=== PATIENT | female | born 1985 | race Asian ===

== ENCOUNTER 2018-01-06 13:47 | Inpatient (IN) | payer OTHER ==
[~2018-01-06] VITALS: Ht 157.5 cm; Wt 54.0 kg
--- NOTE | 2018-01-06 14:24 | Emergency Room Report ---
History of Present Illness General Chief Complaint: Abdominal Pain Source: Patient Present Illness HPI 32-year-old female with no medical problems, no surgical history, no meds, presents with 1 week history of abdominal pain, reports he was epigastric and periumbilical sharp pain intermittently for the past 6 days, however last night it migrated to the right lower quadrant, she also reports a subjective fever last night. She reports the pain is intermittent, sharp, non-radiating, localized to the right lower quadrant now. She denies sore throat, cough, vomiting, diarrhea, vaginal discharge, dysuria, hematuria, any other complaints. She was sent here by her primary care doctor for an evaluation for appendicitis. Allergies: Coded Allergies: No Known Allergies (Unverified , 01/06/18) Patient History Past Medical History: see triage record Last Menstrual Period: 12/08/17 Now: No : 0 Reviewed Nursing Documentation: PMH: Agreed; PSxH: Agreed Nursing Documentation-PMH Past Medical History: No History, Except For Review of Systems All Other Systems: negative except mentioned in HPI Physical Exam Vital Signs Date Time Temp Pulse Resp B/P (MAP) Pulse Ox O2 Delivery O2 Flow Rate FiO2 01/06/18 14:14 99.7 105 18 118/84 100 Room Air 99.7 Sp02 EP Interpretation: reviewed, normal General Appearance: alert, mild distress Head: normocephalic Eyes: bilateral eye normal inspection, bilateral eye PERRL, bilateral eye EOMI ENT: normal ENT inspection, hearing grossly normal, normal pharynx, no angioedema, normal voice, moist mucus membranes Neck: normal inspection, full range of motion, supple, supple/symm/no masses Respiratory: chest non-tender, lungs clear, normal breath sounds, chest symmetrical, palpation of chest normal Cardiovascular #1: normal peripheral pulses, regular rate, rhythm Cardiovascular #2: 2+ radial (R), 2+ radial (L), 2+ dorsalis pedis (R), 2+ dorsalis pedis (L) Gastrointestinal: normal inspection, soft, no mass, no guarding, no rebound, tenderness - +Mc [place]'s point RLQ tenderness Rectal: deferred Genitourinary: normal inspection, no CVA tenderness Musculoskeletal: back normal, gait/station normal, normal range of motion, non- tender, no calf tenderness Neurologic: alert, responsive, produce inspector III-XII nml as tested, motor strength/tone normal, sensory intact, speech normal Psychiatric: judgement/insight normal, memory normal, mood/affect normal Skin: normal color, no rash, warm/dry, normal turgor Lymphatic: no adenopathy Procedures Critical Care Time Critical Care Time 30 minutes excluding all procedures for need for emergent surgical evaluation Medical Decision Making Diagnostic Impression: Primary Impression: Appendicitis, acute ER Course Patient made nothing by mouth, high suspicion for appendicitis, no evidence of peritoneal signs on initial exam, will obtain labs and CT scan and monitor closely for signs of decompensation. Patient with WBC 22k, started on IV abx. CT/MRI/US Diagnostic Results CT/MRI/US Diagnostic Results : Imaging Test Ordered: ct abd/pelvis Impression 10mm appendicitis with surrounding stranding, no free air, slight amount of ff in pelvis possibly 2/2 ovarian cysts Reevaluation Time: 16:37 Last Vital Signs Date Time Temp Pulse Resp B/P (MAP) Pulse Ox O2 Delivery O2 Flow Rate FiO2 01/06/18 14:14 99.7 105 18 118/84 100 Room Air 99.7 Status: unchanged Reevaluation Impression On reevaluation, still with no peritoneal signs, and CT scan does reveal evidence of acute appendicitis with surrounding inflammatory changes, but no perforation seen on scan. Patient given IV antibiotics, remains nothing by mouth, IV fluids ordered, IV analgesics, Dr. Hare informed and agrees to consult for acute appendicitis and take to OR first thing in the morning unless condition changes. Dr. Scanlon agrees to admit. Disposition: ADMITTED INPATIENT Condition: Stable Signed Out To: Dr. Scanlon Physician Consult: BECKA Walker M.D Jan 06, 2018 14:24
[2018-01-06 14:30] VITALS: BP 118/84
[2018-01-06 15:23] LABS: HEMATOCRIT 39.8 % (37.0-47.0); HEMOGLOBIN 14.8 G/DL (12.0-16.0); MEAN CORPUSCULAR VOLUME 94 FL (80-99); PLATELET COUNT 262 K/UL (150-450); RED BLOOD COUNT 4.25 M/UL (4.20-5.40); RED CELL DISTRIBUTION WIDTH 10.3 % (11.6-14.8)
[2018-01-06 15:25] LABS: WHITE BLOOD COUNT 22.1 K/UL (4.8-10.8)
[2018-01-06 15:28] LABS: APPEARANCE,URINE SLIGHTLY CLOUDY; BILIRUBIN, URINE 1+ (NEGATIVE); GLUCOSE, URINE (UA) NEGATIVE (NEGATIVE); KETONES,URINE 4+ (NEGATIVE); LEUKOCYTE ESTERASE ,URINE 1+ (NEGATIVE); NITRITE,URINE NEGATIVE (NEGATIVE); PH,URINE 6 (4.5-8.0); PROTEIN,URINE 2+ (NEGATIVE); UROBILINOGEN,URINE 4 MG/DL (0.0-1.0)
[2018-01-06 15:29] LABS: COLOR,URINE AMBER
[2018-01-06 15:40] LABS: ANION GAP 12 mmol/L (5-15); BLOOD UREA NITROGEN 6 mg/dL (7-18); CALCIUM 9.1 MG/DL (8.5-10.1); CARBON DIOXIDE 23 MMOL/L (21-32); CHLORIDE 100 MMOL/L (98-107); CREATININE 0.6 MG/DL (0.55-1.30); POTASSIUM 3.8 MMOL/L (3.5-5.1); SODIUM 135 MMOL/L (136-145)
[2018-01-06 15:44] LABS: ALANINE AMINOTRANSFERASE 21 U/L (12-78); ALBUMIN 3.6 G/DL (3.4-5.0); ALBUMIN/GLOBULIN RATIO 0.9 (1.0-2.7); ALKALINE PHOSPHATASE 66 U/L (46-116); ASPARTATE AMINO TRANSFERASE 19 U/L (15-37); BILIRUBIN,TOTAL 0.9 MG/DL (0.2-1.0)
[2018-01-06] MEDS ORDERED: cefOXitin 1gm Inj ONE (16:32)
[2018-01-06] MEDS ORDERED: cefOXitin 2gm Inj ONE (16:34)
[2018-01-06] MEDS ORDERED: Morphine Sulfate 4mg/ml Inj (IV USE ONLY) IVP ONE (16:45)
[2018-01-06 17:03] VITALS: BP 124/72
[2018-01-06] MEDS ORDERED: cefOXitin 2gm Inj IVP ONE (18:00)
[2018-01-06 18:15] VITALS: BP 100/66
--- NOTE | 2018-01-06 18:53 | Consultation ---
History of Present Illness General Date patient seen: Jan 06, 2018 Chief Complaint: Abdominal Pain Reason for Consultation: acute appy Present Illness HPI 32 year old otherwise healthy female presented to ED with complaints of abdominal pain. states last week noted some vague abdominal discomfort. two days ago acutely worsened. aisha-umbilical now in RLQ. no radiation. no n/v. +fevers. normal BM and flatus. in ED leukocytosis and CT consistent with acute appy Allergies: Coded Allergies: No Known Allergies (Unverified , 01/06/18) Patient History History Provided By: Patient, Medical Record, PMD Healthcare decision maker Resuscitation status Advanced Directive on File Past Medical/Surgical History Past Medical/Surgical History: (1) Appendicitis, acute Review of Systems All Other Systems: negative except mentioned in HPI Physical Exam General Appearance: no apparent distress Lines, tubes and drains: peripheral HEENT: normocephalic, mucous membranes moist Neck: normal inspection Respiratory/Chest: lungs clear, normal breath sounds, no respiratory distress, no accessory muscle use Cardiovascular/Chest: normal peripheral pulses, normal rate Abdomen: normal bowel sounds, soft, no organomegaly, no mass, guarding, rebound , tender Extremities: normal inspection Skin Exam: normal pigmentation Neurologic: older worker specialist II-XII grossly normal, alert, oriented x 3 Last 24 Hour Vital Signs Date Time Temp Pulse Resp B/P (MAP) Pulse Ox O2 Delivery O2 Flow Rate FiO2 01/06/18 18:15 100.2 88 18 100/66 (77) 100 100.2 01/06/18 18:13 97.6 98 16 124/72 100 Room Air 97.6 01/06/18 17:31 97.6 01/06/18 17:03 97.6 98 16 124/72 100 Room Air 97.6 01/06/18 17:01 99.7 01/06/18 14:30 99.7 105 18 118/84 100 Room Air 99.7 01/06/18 14:14 99.7 105 18 118/84 100 Room Air 99.7 Laboratory Tests Test 01/06/18 14:45 White Blood Count 22.1 K/UL (4.8-10.8) *H Red Blood Count 4.25 M/UL (4.20-5.40) Hemoglobin 14.8 G/DL (12.0-16.0) Hematocrit 39.8 % (37.0-47.0) Mean Corpuscular Volume 94 FL (80-99) Mean Corpuscular Hemoglobin 34.8 PG (27.0-31.0) H Mean Corpuscular Hemoglobin Concent 37.1 G/DL (32.0-36.0) H Red Cell Distribution Width 10.3 % (11.6-14.8) L Platelet Count 262 K/UL (150-450) Mean Platelet Volume 6.4 FL (6.5-10.1) L Neutrophils (%) (Auto) % (45.0-75.0) Lymphocytes (%) (Auto) % (20.0-45.0) Monocytes (%) (Auto) % (1.0-10.0) Eosinophils (%) (Auto) % (0.0-3.0) Basophils (%) (Auto) % (0.0-2.0) Differential Total Cells Counted 100 Neutrophils % (Manual) 87 % (45-75) H Lymphocytes % (Manual) 5 % (20-45) L Monocytes % (Manual) 8 % (1-10) Eosinophils % (Manual) 0 % (0-3) Basophils % (Manual) 0 % (0-2) Band Neutrophils 0 % (0-8) Platelet Estimate Adequate Platelet Morphology Normal Red Blood Cell Morphology Normal Urine Color [place] Urine Appearance Slightly cloudy Urine pH 6 (4.5-8.0) Urine Specific [place] 1.020 (1.005-1.035) Urine Protein 2+ (NEGATIVE) H Urine Glucose (UA) Negative (NEGATIVE) Urine Ketones 4+ (NEGATIVE) H Urine Blood 2+ (NEGATIVE) H Urine Nitrite Negative (NEGATIVE) Urine Bilirubin 1+ (NEGATIVE) H Urine Ictotest Positive (NEGATIVE) Urine Urobilinogen 4 MG/DL (0.0-1.0) H Urine Leukocyte Esterase 1+ (NEGATIVE) H Urine RBC 2-4 /HPF (0 - 2) H Urine WBC 10-15 /HPF (0 - 2) H Urine Squamous Epithelial Cells Few /LPF (NONE/OCC) Urine Bacteria Few /HPF (NONE) Urine Mucus Many /LPF (NONE/OCC) H Urine HCG, Qualitative Negative (NEGATIVE) Sodium Level 135 MMOL/L (136-145) L Potassium Level 3.8 MMOL/L (3.5-5.1) Chloride Level 100 MMOL/L (98-107) Carbon Dioxide Level 23 MMOL/L (21-32) Anion Gap 12 mmol/L (5-15) Blood Urea Nitrogen 6 mg/dL (7-18) L Creatinine 0.6 MG/DL (0.55-1.30) Estimat Glomerular Filtration Rate > 60 mL/min (>60) Glucose Level 106 MG/DL (74-106) Calcium Level 9.1 MG/DL (8.5-10.1) Total Bilirubin 0.9 MG/DL (0.2-1.0) Aspartate Amino Transf (AST/SGOT) 19 U/L (15-37) Alanine Aminotransferase (ALT/SGPT) 21 U/L (12-78) Alkaline Phosphatase 66 U/L (46-116) Total Protein 7.7 G/DL (6.4-8.2) Albumin 3.6 G/DL (3.4-5.0) Globulin 4.1 g/dL Albumin/Globulin Ratio 0.9 (1.0-2.7) L Lipase 90 U/L (73-393) Height (Feet): 5 Height (Inches): 2.00 Weight (Pounds): 119 Assessment/Plan Problem List: (1) Appendicitis, acute Assessment & Plan: 32F acute appendicitis. low grade fevers leukocytosis +mcburneys on exam npo iv fluids iv abx am labs consent OR for lap appy ICD Codes: K35.80 - Unspecified acute appendicitis SNOMED: 02000811 Qualifiers: Qualified Codes: K35.3 - Acute appendicitis with localized peritonitis Status: stable Perez Boateng Jan 06, 2018 18:53
[2018-01-06 20:00] VITALS: BP 98/64
[2018-01-06] MEDS: D5NS 1,000 ML IV SCH (20:19)
[2018-01-06 21:30] VITALS: BP 102/62
[2018-01-06] MEDS: Morphine Sulfate 2mg/ml Inj(IV/IM USE ONLY) IVP PRN (21:40)
[2018-01-06] MEDS: Piperacillin/Tazobactam 3.375 GM in NS 110 ML IVPB SCH (21:40)
--- NOTE | 2018-01-06 23:00 | History and Physical Report ---
DATE OF ADMISSION: 01/06/2018 CHIEF COMPLAINT: Acute appendicitis. HISTORY OF PRESENT ILLNESS: The patient is a 32-year-old female with no past medical history. She presented to the emergency room with complaints of 6 days of progressive abdominal pain. According to the patient, the pain started in the epigastric region, but localized right lower quadrant. She has had poor appetite and anorexia. She presented to the emergency room. She had white count of 22,000. CT scan of the abdomen was consistent with acute appendicitis. The patient is now admitted for further evaluation and care. PAST MEDICAL HISTORY: None. PAST SURGICAL HISTORY: None. CURRENT MEDICATIONS: None. FAMILY HISTORY: None. SOCIAL HISTORY: The patient drinks socially and smokes and no drugs. REVIEW OF SYSTEMS: Negative except for abdominal pain. PHYSICAL EXAMINATION: VITAL SIGNS: Temperature 100.2 degrees, pulse 88, respirations 18, and blood pressure 100/66. GENERAL: The patient is well developed, in no apparent distress. HEART: Regular rate and rhythm. LUNGS: Clear. ABDOMEN: Soft, diffusely tender with no rebound or guarding. EXTREMITIES: No clubbing, cyanosis, or edema. LABORATORY AND DIAGNOSTIC DATA: White count 22,000, hemoglobin 14, and platelet count of 262. Sodium was 135 and potassium 3.8. Urine showed 10 to 15 wbc's. ASSESSMENT: This is a pleasant female admitted with complaints of acute appendicitis. PROBLEM LIST: Acute appendicitis. PLAN: IV antibiotics, IV hydration, NPO, pain medications and antiemetics. Surgery in the morning. Dileep Scanlon M.D. DR: CHAS JOB#: [id number] CC:
[2018-01-07] VITALS (10 sets, daily range): BP systolic 97–107; BP diastolic 63–93
[2018-01-07] MEDS: Morphine Sulfate 2mg/ml Inj(IV/IM USE ONLY) IVP PRN (03:03)
[2018-01-07] MEDS: D5NS 1,000 ML IV SCH ×2 (05:21→14:52)
[2018-01-07] MEDS: Piperacillin/Tazobactam 3.375 GM in NS 110 ML IVPB SCH ×2 (05:21→14:34)
[2018-01-07] MEDS ORDERED: Midazolam 2mg/2ml Inj ONE (07:07)
[2018-01-07] MEDS ORDERED: fentaNYL 100 mcg/2 mL IV ONE (07:07)
[2018-01-07] MEDS ORDERED: Propofol 200mg/20ml IV ONE (07:09)
[2018-01-07] MEDS ORDERED: Lidocaine 1% MPF 10mg/ml 5ml ONE (07:09)
[2018-01-07] MEDS ORDERED: Ketorolac 30mg Inj ONE (07:09)
--- NOTE | 2018-01-07 07:13 | Pre-Procedure Note/Attestation ---
Pre-Procedure Note/Attestation Complete Prior to Procedure Planned Procedure: not applicable Procedure Narrative: lap appy Indications for Procedure Pre-Operative Diagnosis: acute appendicitis Attestation I attest that I discussed the nature of the procedure; its benefits; risks and complications; and alternatives (and the risks and benefits of such alternatives ), prior to the procedure, with the patient (or the patient's legal employee relations representative). I attest that, if there was a reasonable possibility of needing a blood transfusion, the patient (or the patient's legal employee relations representative) was given the [facility] standardized written summary, pursuant to the David Ministerio Blood Safety Act ([place] Health and Safety Code # 1645, as amended). I attest that I re-evaluated the patient just prior to the surgery and that there has been no change in the patient's H&P, except as documented below: Perez Boateng Jan 07, 2018 07:13
[2018-01-07] MEDS ORDERED: Zemuron 50mg/5ml Inj IV ONE (07:15)
[2018-01-07] MEDS ORDERED: Succinylcholine 20mg/ml 10ml vial ONE (07:15)
[2018-01-07] MEDS ORDERED: EPINEPHrine 1mg/1ml Amp ONE (07:21)
[2018-01-07] MEDS ORDERED: Bupivacaine 0.5% Inj 30 ml vial INJ ONE (07:21)
[2018-01-07] MEDS ORDERED: LR 1000ml ONE (07:30)
[2018-01-07] MEDS ORDERED: Neostigmine 1mg/ml 10ml Inj ONE (07:30)
[2018-01-07] MEDS ORDERED: Sterile Water Irrig 1000ml IRRIG ONE (07:30)
--- NOTE | 2018-01-07 07:56 | General Progress Note ---
Assessment/Plan Problem List: (1) Appendicitis, acute ICD Codes: K35.80 - Unspecified acute appendicitis SNOMED: [id number] Qualifiers: Qualified Codes: K35.3 - Acute appendicitis with localized peritonitis Status: stable Assessment/Plan stable for surgery ivf abx npo appy today Subjective ROS Limited/Unobtainable: No HEENT: Reports: no symptoms Cardiovascular: Reports: no symptoms Respiratory: Reports: no symptoms Gastrointestinal/Abdominal: Reports: abdominal pain Genitourinary: Reports: no symptoms Neurologic/Psychiatric: Reports: no symptoms Endocrine: Reports: no symptoms Hematologic/Lymphatic: Reports: no symptoms Allergies: Coded Allergies: No Known Allergies (Unverified , 01/06/18) All Systems: reviewed and negative except above Subjective npo for surgery this am. same abd pain. low grade fever Objective Last 24 Hour Vital Signs Date Time Temp Pulse Resp B/P (MAP) Pulse Ox O2 Delivery O2 Flow Rate FiO2 01/07/18 04:00 99.4 81 18 97/63 (74) 97 99.4 01/07/18 00:00 100.1 87 19 101/65 (77) 97 100.1 01/06/18 21:30 102/62 (75) 01/06/18 20:00 100.0 85 18 98/64 (75) 95 100.0 01/06/18 19:45 Room Air 01/06/18 18:15 100.2 88 18 100/66 (77) 100 100.2 01/06/18 18:13 97.6 98 16 124/72 100 Room Air 97.6 01/06/18 17:31 97.6 01/06/18 17:03 97.6 98 16 124/72 100 Room Air 97.6 01/06/18 17:01 99.7 01/06/18 14:30 99.7 105 18 118/84 100 Room Air 99.7 01/06/18 14:14 99.7 105 18 118/84 100 Room Air 99.7 Intake and Output 01/06/18 01/07/18 19:00 07:00 Intake Total 2067.5 ml Balance 2067.5 ml Intake IV Total 2067.5 ml # Voids 1 1 Laboratory Tests 01/06/18 14:45: White Blood Count 22.1*H, Red Blood Count 4.25, Hemoglobin 14.8, Hematocrit 39.8 , Mean Corpuscular Volume 94, Mean Corpuscular Hemoglobin 34.8H, Mean Corpuscular Hemoglobin Concent 37.1H, Red Cell Distribution Width 10.3L, Platelet Count 262, Mean Platelet Volume 6.4L, Neutrophils (%) (Auto) , Lymphocytes (%) (Auto) , Monocytes (%) (Auto) , Eosinophils (%) (Auto) , Basophils (%) (Auto) , Differential Total Cells Counted 100, Neutrophils % ( Manual) 87H, Lymphocytes % (Manual) 5L, Monocytes % (Manual) 8, Eosinophils % ( Manual) 0, Basophils % (Manual) 0, Band Neutrophils 0, Platelet Estimate Adequate, Platelet Morphology Normal, Red Blood Cell Morphology Normal, Urine Color Audrey, Urine Appearance Slightly cloudy, Urine pH 6, Urine Specific [place] 1.020, Urine Protein 2+H, Urine Glucose (UA) Negative, Urine Ketones 4+H , Urine Blood 2+H, Urine Nitrite Negative, Urine Bilirubin 1+H, Urine Ictotest Positive, Urine Urobilinogen 4H, Urine Leukocyte Esterase 1+H, Urine RBC 2-4H, Urine WBC 10-15H, Urine Squamous Epithelial Cells Few, Urine Bacteria Few, Urine Mucus ManyH, Urine HCG, Qualitative Negative, Sodium Level 135L, Potassium Level 3.8, Chloride Level 100, Carbon Dioxide Level 23, Anion Gap 12, Blood Urea Nitrogen 6L, Creatinine 0.6, Estimat Glomerular Filtration Rate > 60 , Glucose Level 106, Calcium Level 9.1, Total Bilirubin 0.9, Aspartate Amino Transf (AST/SGOT) 19, Alanine Aminotransferase (ALT/SGPT) 21, Alkaline Phosphatase 66, Total Protein 7.7, Albumin 3.6, Globulin 4.1, Albumin/Globulin Ratio 0.9L, Lipase 90 Height (Feet): 5 Height (Inches): 2.00 Weight (Pounds): 119 General Appearance: WD/WN Neck: supple Cardiovascular: regular rhythm Respiratory/Chest: lungs clear Abdomen: normal bowel sounds, non tender, soft, no organomegaly Edema: no edema noted Arm (L), no edema noted Arm (R), no edema noted Leg (L), no edema noted Leg (R), no edema noted Pedal (L), no edema noted Pedal (R), no edema noted Generalized Neurologic: pulp tester II-XII grossly normal Dileep Scanlon MD Jan 07, 2018 07:56
[2018-01-07] MEDS ORDERED: Glycopyrrolate 0.2mg/ml 1ml Vial ONE (08:09)
[2018-01-07] MEDS ORDERED: LR 1000ml 1,000 ML IVLG SCH (08:22)
--- NOTE | 2018-01-07 08:22 | Anethesia Preoperative Eval ---
Anesthesia Pre-op PMH/ROS General Date of Evaluation: Jan 07, 2018 Time of Evaluation: 07:15 Anesthesiologist: Celestina ASA Score: ASA 2 Mallampati Score Class I : Soft palate, uvula, fauces, pillars visible Class II: Soft palate, uvula, fauces visible Class III: Soft palate, base of uvula visible Class IV: Only hard plate visible Mallampati Classification: Class II Surgeon: Ananya Diagnosis: Acute appendicitis Surgical Procedure: Lap appendectomy Anesthesia History: none Family History: no anesthesia problems Allergies: Coded Allergies: No Known Allergies (Unverified , 01/06/18) Past Medical History Cardiovascular: Denies: HTN, CAD, ME, valve dz, arrhythmia, other Pulmonary: Denies: asthma, COPD, VAMSI, other Gastrointestinal/Genitourinary: Reports: GERD - mild; Denies: CRI, ESRD, other Neurologic/Psychiatric: Denies: dementia, CVA, depression/anxiety, TIA, other Endocrine: Denies: DM, hypothyroidism, steroids, other HEENT: Denies: cataract (L), cataract (R), glaucoma, NIKOLAI (L), NIKOLAI (R), other Hematology/Immune: Denies: anemia, DVT, bleeding disorder, other Musculoskeletal/Integumentary: Denies: OA, RA, DJD, DDD, edema, other PMH Narrative: as above admitted for acute abdominal pain fewer N/V diagnosed with acute appy. surgery scheduled. PSxH Narrative: none Anesthesia Pre-op Phys. Exam Physician Exam Last Vital Signs Date Time Temp Pulse Resp B/P (MAP) Pulse Ox O2 Delivery O2 Flow Rate FiO2 01/07/18 04:00 99.4 81 18 97/63 (74) 97 99.4 01/06/18 19:45 Room Air Constitutional: NAD Neurologic: CN 2-12 intact Cardiovascular: RRR, no M/R/G Respiratory: CTA Gastrointestinal: other - some tenderness on palpation Airway Exam Mallampati Score: Class II MO: limited Neck: mild micrognatia ROM: full Teeth: intact Dentures: no upper, no lower Anesthesia Pre-op A/P Labs Hematology Test 01/06/18 14:45 White Blood Count 22.1 K/UL (4.8-10.8) *H Red Blood Count 4.25 M/UL (4.20-5.40) Hemoglobin 14.8 G/DL (12.0-16.0) Hematocrit 39.8 % (37.0-47.0) Mean Corpuscular Volume 94 FL (80-99) Mean Corpuscular Hemoglobin 34.8 PG (27.0-31.0) H Mean Corpuscular Hemoglobin Concent 37.1 G/DL (32.0-36.0) H Red Cell Distribution Width 10.3 % (11.6-14.8) L Platelet Count 262 K/UL (150-450) Mean Platelet Volume 6.4 FL (6.5-10.1) L Neutrophils (%) (Auto) % (45.0-75.0) Lymphocytes (%) (Auto) % (20.0-45.0) Monocytes (%) (Auto) % (1.0-10.0) Eosinophils (%) (Auto) % (0.0-3.0) Basophils (%) (Auto) % (0.0-2.0) Differential Total Cells Counted 100 Neutrophils % (Manual) 87 % (45-75) H Lymphocytes % (Manual) 5 % (20-45) L Monocytes % (Manual) 8 % (1-10) Eosinophils % (Manual) 0 % (0-3) Basophils % (Manual) 0 % (0-2) Band Neutrophils 0 % (0-8) Platelet Estimate Adequate Platelet Morphology Normal Red Blood Cell Morphology Normal Chemistry Test 01/06/18 14:45 Sodium Level 135 MMOL/L (136-145) L Potassium Level 3.8 MMOL/L (3.5-5.1) Chloride Level 100 MMOL/L (98-107) Carbon Dioxide Level 23 MMOL/L (21-32) Anion Gap 12 mmol/L (5-15) Blood Urea Nitrogen 6 mg/dL (7-18) L Creatinine 0.6 MG/DL (0.55-1.30) Estimat Glomerular Filtration Rate > 60 mL/min (>60) Glucose Level 106 MG/DL (74-106) Calcium Level 9.1 MG/DL (8.5-10.1) Total Bilirubin 0.9 MG/DL (0.2-1.0) Aspartate Amino Transf (AST/SGOT) 19 U/L (15-37) Alanine Aminotransferase (ALT/SGPT) 21 U/L (12-78) Alkaline Phosphatase 66 U/L (46-116) Total Protein 7.7 G/DL (6.4-8.2) Albumin 3.6 G/DL (3.4-5.0) Globulin 4.1 g/dL Albumin/Globulin Ratio 0.9 (1.0-2.7) L Lipase 90 U/L (73-393) Urine Test Test 01/06/18 14:45 Urine HCG, Qualitative Negative (NEGATIVE) Risk Assessment & Plan Assessment: ASA 2E Plan: GA with ETT PONV prevention Status Change Before Surgery: No Pre-Antibiotics Drug: as scheduled Given Within 1 Hr of Incision: Yes Time Given: 08:04 Diego Oscar MD Jan 07, 2018 08:22
[2018-01-07] MEDS ORDERED: Meperidine 50mg/ml Inj(FOR RIGORS ONLY) IV PRN (08:30)
[2018-01-07] MEDS ORDERED: Metoclopramide 10mg/2ml Inj IVP PRN (08:30)
[2018-01-07] MEDS ORDERED: Ketorolac 30mg Inj IV PRN ×2 (08:30→09:15)
[2018-01-07] MEDS ORDERED: fentaNYL 100 mcg/2 mL IV PRN (08:30)
[2018-01-07] MEDS ORDERED: Midazolam 2mg/2ml Inj IVP PRN (08:30)
[2018-01-07] MEDS ORDERED: DiphenhydrAMINE 50mg/ml Inj IVP ONE (08:30)
--- NOTE | 2018-01-07 09:05 | Brief Operative Note ---
Immediate Post Operative Note Operative Note Pre-op Diagnosis: acute appendicitis Procedure: lap appy Post-op Diagnosis: same as pre-op Surgeon: adele Anesthesiologist: sheri Anesthesia: general, local Specimen: yes Complications: none Condition: stable Fluids: see records Estimated Blood Loss: minimal Drains: none Implant(s) used?: No Perez Boateng Jan 07, 2018 09:05
[2018-01-07] MEDS ORDERED: DiphenhydrAMINE 50mg/ml Inj IVP PRN (09:15)
[2018-01-07] MEDS ORDERED: HYDROcodone/Acetamin 10/325 tab ORAL PRN (09:15)
[2018-01-07] MEDS ORDERED: Norco 5mg/325mg tab ORAL PRN (09:15)
[2018-01-07] MEDS ORDERED: Morphine Sulfate 2mg/ml Inj(IV/IM USE ONLY) IVP PRN ×2 (09:15)
[2018-01-07] MEDS ORDERED: Milk of Magnesia 30ml Ud ORAL PRN (09:15)
[2018-01-07] MEDS ORDERED: Morphine Sulfate 4mg/ml Inj (IV USE ONLY) IVP PRN (09:15)
--- NOTE | 2018-01-07 09:28 | Diagnostic Imaging Report ---
Indication: Abdominal pain Technique: Continuous helical transaxial imaging of the abdomen and pelvis was obtained from the lung bases to the pubic symphysis during intravenous contrast administration. Coronal 2-D reformats were also obtained. Study obtained in a Siemens sensation [address] Automatic Exposure Control was utilized. Total Dose length Product (DLP): 551.[address] Dose Index Volume (CTDIvol): 9.84 mGy Comparison: None Findings: There is mild posterior basilar atelectasis demonstrated. Gallbladder is unremarkable. The liver and spleen, pancreas, adrenal glands appear normal. Kidneys are unremarkable. There is marked inflammation in the right lower quadrant with soft tissue stranding of mesenteric fat centered about a dilated appendiceal tip measuring about 10 mm consistent with acute appendicitis likely perforated at the tip. There is some fluid in the right hemipelvis and at the tip of the liver. There is thickening of a few loops of distal small bowel in the right lower quadrant within the area of inflammation, likely reactive ileus. Uterus and both ovaries are demonstrated and unremarkable. IMPRESSION: Acute appendicitis with evidence of perforation of the distal tip and moderate to severe inflammation and mild fluid accumulation. [facility] has communicated the preliminary results to the Emergency Department. Their findings are largely concordant with this report. The CT scanner at [facility] is accredited by the [employer] and the scans are performed using dose optimization techniques as appropriate to a performed exam including Automatic Exposure control.
--- NOTE | 2018-01-07 09:32 | Immediate Post-Op Evaluation ---
Immediate Post-Op Evalulation Immediate Post-Op Evalulation Procedure: laparoscopic appendectomy Date of Evaluation: Jan 07, 2018 Time of Evaluation: 09:10 IV Fluids: 1000 Blood Products: none Estimated Blood Loss: min Urinary Output: none Blood Pressure Systolic: 108 Blood Pressure Diastolic: 58 Pulse Rate: 76 Respiratory Rate: 20 O2 Sat by Pulse Oximetry: 98 Temperature (Fahrenheit): 97.6 Pain Score (1-10): 2 Nausea: No Vomiting: No Complications none Patient Status: awake, patent, extubated, none Hydration Status: adequate Diego Oscar MD Jan 07, 2018 09:32
[2018-01-07 13:29] LABS: HEMATOCRIT 36.7 % (37.0-47.0); HEMOGLOBIN 12.7 G/DL (12.0-16.0); MEAN CORPUSCULAR VOLUME 96 FL (80-99); PLATELET COUNT 221 K/UL (150-450); RED BLOOD COUNT 3.82 M/UL (4.20-5.40); RED CELL DISTRIBUTION WIDTH 10.4 % (11.6-14.8); WHITE BLOOD COUNT 16.4 K/UL (4.8-10.8)
[2018-01-07 13:51] LABS: ALANINE AMINOTRANSFERASE 16 U/L (12-78); ALBUMIN 2.6 G/DL (3.4-5.0); ALBUMIN/GLOBULIN RATIO 0.7 (1.0-2.7); ALKALINE PHOSPHATASE 54 U/L (46-116); ANION GAP 7 mmol/L (5-15); ASPARTATE AMINO TRANSFERASE 11 U/L (15-37); BILIRUBIN,TOTAL 0.6 MG/DL (0.2-1.0); BLOOD UREA NITROGEN 6 mg/dL (7-18); CALCIUM 8.2 MG/DL (8.5-10.1); CARBON DIOXIDE 27 MMOL/L (21-32); CHLORIDE 105 MMOL/L (98-107); CREATININE 0.5 MG/DL (0.55-1.30); POTASSIUM 3.9 MMOL/L (3.5-5.1); SODIUM 138 MMOL/L (136-145)
[2018-01-07] MEDS ORDERED: COLACE100 MG ORAL (16:04)
[2018-01-07] MEDS ORDERED: NORCO 5-325 TA1 EACH ORAL (16:04)
--- NOTE | 2018-01-07 17:45 | Operative Note - Dictated ---
DATE OF OPERATION: 01/07/2018 PREOPERATIVE DIAGNOSIS: Acute appendicitis. POSTOPERATIVE DIAGNOSIS: Acute appendicitis. OPERATION PERFORMED: Laparoscopic appendectomy. ATTENDING SURGEON: Perez Boateng M.D. BALLOON ARTIST: None. ANESTHESIOLOGIST: Diego Oscar M.D. ANESTHESIA: General HOT DIE PICKER. ESTIMATED BLOOD LOSS: Minimal. IV FLUIDS: Please see anesthesia records. COMPLICATIONS: None. WOUND CLASSIFICATION: Class III. SPECIMENS: Appendix sent to pathology for review. DRAINS: None. COUNTS: Sponge and needle count correct x2. ANTIBIOTICS: The patient on scheduled IV Zosyn. INDICATIONS FOR PROCEDURE: This is a 32-year-old female who presented to the emergency room at [facility] complaining of worsening abdominal pain beginning periumbilical and now in the right lower quadrant. CT of abdomen and pelvis was performed and consistent with acute appendicitis. The patient had fever, leukocytosis and a positive McBurney point tenderness. Surgery was indicated and recommended. Risks, benefits, and alternatives were discussed with the patient and family in detail. Consent was obtained for surgery, which was performed on 01/07/2018. OPERATIVE NOTE: The patient was taken to the operating room and placed on the operating table in supine position with left arm tucked. All bony prominences were well padded. SCDs were placed. Preoperative time-out was taken identifying the patient, procedure, operative site and surgical staff. The patient was already on scheduled IV antibiotics for acute active inflammatory process. The patient voided prior to entering the operating room, so no Jewell catheter was placed. General anesthesia was induced and the patient was intubated. The abdomen was then clipped, prepped, and draped in standard surgical fashion. An umbilical incision was made using a fresh #11 scalpel. Incision was carried through the skin and subcutaneous tissue to the fascia, which was elevated and incised. Entry into the abdomen was obtained using the open Nahid technique without complication. A 12 mm Nahid trocar was inserted and the abdomen was insufflated to 12 to 15 mmHg. The patient tolerated this insufflation well. Laparoscope was entered and the abdomen was inspected. The right upper quadrant and left upper quadrant were otherwise normal. The right lower and left lower quadrant and pelvis were otherwise normal. There was some serous fluid in the pelvis. Secondary trocars were placed beginning with a left lower quadrant 12 mm trocar followed by a suprapubic 5 mm trocar. No complications. Secondary trocar placement noted. The tenia of the right colon was then identified and followed down to the confluence at which point the base of the appendix, which was identified. The appendix was then noted and had a significant amount of inflammatory tissue, but no perforation or abscess. The base of the appendix was grasped and a window was made in the base of the appendix without complication. A laparoscopic linear stapler was then inserted and the base of the appendix was divided. The mesentery appendix was then freed and the mesoappendix was divided using a laparoscopic linear stapler in a similar fashion. Once this was completed, the appendix in the endoscopic retrieval bag and removed from the umbilical port site. The abdomen was inspected. Hemostasis from the staple line was noted. A single laparoscopic 10 mm clip was used for hemostasis at the staple line at the base of the appendix. The right lower quadrant and pelvis were then irrigated and suctioned. Once all fluid was evacuated, the staple lines were re-evaluated and noted to be hemostatic. At this time, we began the conclusion of our procedure. Secondary trocars were removed under direct visualization. The umbilical trocar was removed and the abdomen was allowed to decompress. The umbilical and left lower quadrant fascial incisions were closed using [id number] #0 Vicryl suture. Following this, the wounds were cleansed and skin incisions closed using 4-0 Monocryl subcuticular interrupted sutures. Wounds were cleansed. Skin glue and Steri-Strips were applied. The patient tolerated the procedure well, was extubated and taken to the postanesthetic care unit in stable condition. Perez Boateng M.D. DR: GIOVANI JOB#: [id number] CC:
[2018-01-07] MEDS ORDERED: Tubing IV Secondary IV ONE (17:59)
[2018-01-07] MEDS ORDERED: Docusate 100mg cap ORAL SCH (18:00)
[2018-01-08 09:24] VITALS: BP 107/72
--- NOTE | 2018-01-08 09:24 | 48 Hour Post Anesthesia Eval ---
Post Anesthesia Evaluation Procedure: laparoscopic appendectomy Date of Evaluation: Jan 08, 2018 Blood Pressure Systolic: 107 0: 72 Pulse Rate: 93 Respiratory Rate: 18 Temperature (Fahrenheit): 99.7 O2 Sat by Pulse Oximetry: 99 Airway: patent Nausea: No Vomiting: No Hydration Status: adequate Cardiopulmonary Status: Stable. Patient is discharged to home. Mental Status/LOC: patient returned to baseline Follow-up Care/Observations: As per surgery Post-Anesthesia Complications: No anesthetic complication Follow-up care needed: N/A David Vazquez MD Jan 08, 2018 09:24
--- NOTE | 2018-01-08 12:31 | Discharge Summary ---
Discharge Summary Discharge Summary _ DATE OF ADMISSION: 01/06/2018 DATE OF DISCHARGE: 01/07/2018 REASON FOR ADMISSION: 32 years old female without significant past medical history, presented with one week of abdominal pain. She reported pain located mainly in epigastric and periumbilical regions. Pain described as sharp, intermittent, for the past 6 days. Last night pain was migrated to the right lower quadrant. Patient also reported subjective fever last night. Patient denied chest pain ,shortness of breath ,cough ,vomiting, diarrhea ,sore throat, vaginal discharge, dysuria, hematuria. Vital signs revealed low grade fever and tachycardia. Laboratory workup revealed significant leukocytosis with WBC 22.1. Stable hemoglobin and hematocrit. Stable electrolytes, renal parameters, LFT ,bilirubin lipase. CT of the abdomen and pelvis was consistent with acute appendicitis with evidence of perforation of the distal tip and moderate to severe inflammation and mild fluid accumulation. Urine test was negative. Urinalysis revealed evidence of pyuria but no bacteria. Patient admitted with diagnosis of acute appendicitis. CONSULTANTS: surgery Dr. Boateng [facility]: Patient admitted to the hospital. Surgery consult was requested. Patient was on IV fluids and kept nothing by mouth. Patient started on empiric antibiotic. Pain management was addressed. Antiemetics provided as needed. Patient subsequently undergone on 01/07 laparoscopic appendectomy. Course of recovery was uneventful. Patient slowly started on diet as tolerated. Antibiotics empirically continued. Patient was able to tolerate diet. Bowel regimen instituted . Patient was ready for discharge: pain controlled, voided freely , able to ambulate without difficulty , hemodynamically stable, afebrile, leukocytosis trending down. Discharge instructions provided. Outpatient follow-up with surgeon for postoperative visit. Due to rapid and unexpected improvement in patient's condition, patient was discharged in one day FINAL DIAGNOSES: Acute appendicitis Status post laparoscopic appendectomy DISCHARGE MEDICATIONS: See Medication Reconciliation list. DISCHARGE INSTRUCTIONS: Patient was discharged home Follow up with surgeon as advised I have been assigned to dictate discharge summary for this account. I was not involved in the patient's management. Laura Márquez NP Jan 08, 2018 12:31
== END 2018-01-07 18:00 | disposition home or self-care (01) | DRG 343 ==
LOC: EMR 14:30 → 4E 16:47 → EDBEDREQ 16:56
PROC: 0DTJ4ZZ Resection of Appendix, Percutaneous Endoscopic Approach (ICD-10-PCS; principal; 2018-01-06)
DX: K35.80 Unspecified acute appendicitis (principal)
CPT/HCPCS: 36415; 74177; 80053; 81003; 81025; 83690; 85007; 85025; 85610; 85730; 87081; 87086; J2250; J2405; J2710